=== PATIENT | female | born 1965 | race Caucasian/White ===

== ENCOUNTER 2022-03-15 05:40 | Day surgery (SDC) | payer MEDICAID ==
[~2022-03-15] VITALS: Ht 157.5 cm; Wt 75.7 kg
[2022-03-15] MEDS ORDERED: SIMETHICONE 40 MG/0.6 ML ML ONE (08:19)
[2022-03-15] MEDS ORDERED: fentaNYL CITRATE/PF 100 MCG/2 ML AMP ONE (08:19)
[2022-03-15] MEDS ORDERED: MIDAZOLAM HCL 5 MG/5 ML VIAL ONE (08:20)
[2022-03-15] MEDS ORDERED: ONDANSETRON HCL 4 MG/2 ML VIAL ONE (08:24)
[2022-03-15 10:46] VITALS: BP_SYST 122
== END 2022-03-15 09:45 | disposition home or self-care (01) ==
LOC: SMU 05:40 → SDS 05:40
PROVIDERS: ATTEND Internal Medicine
DX: Z12.11 Encounter for screening for malignant neoplasm of colon (principal); K63.5 Polyp of colon; K57.30 Diverticulosis of large intestine without perforation or abscess without bleeding; K64.8 Other hemorrhoids; Z79.899 Other long term (current) drug therapy; Z20.822 Contact with and (suspected) exposure to COVID-19
CPT/HCPCS: 36415 ×2; 45385; 87426; 82962; 88305; 99152; 99153; U0003; G0378; J2250; J2405; J3010